=== PATIENT | female | born 1945 | race Caucasian/White ===

== ENCOUNTER 2020-05-22 07:26 | Observation (INO) ==
[2020-05-22] MEDS ORDERED: MAGNESIUM SULFATE 2 GM/50 ML BAG IV PRN ×2 (08:19→20:39)
[2020-05-22] MEDS ORDERED: ONDANSETRON 4 MG ODT TABLET SL PRN ×2 (08:19→20:39)
[2020-05-22] MEDS ORDERED: ACETAMINOPHEN 325 MG TABLET PO PRN ×2 (08:19→20:39)
[2020-05-22] MEDS ORDERED: POLYETHYLENE GLYCOL 3350 17 GM PACKET PO PRN ×2 (08:19→20:39)
[2020-05-22] MEDS ORDERED: ONDANSETRON 4 MG/2 ML VIAL IV PRN ×3 (08:19→20:39)
[2020-05-22] MEDS ORDERED: ACETAMINOPHEN 650 MG/65 ML BAG IV PRN ×2 (08:19→20:39)
[2020-05-22] MEDS ORDERED: BISACODYL 10 MG SUPP.RECT PR PRN ×2 (08:19→20:39)
[2020-05-22] MEDS ORDERED: MELATONIN 3 MG TABLET PO PRN ×2 (08:19→20:39)
[2020-05-22] MEDS ORDERED: HYDROmorphone 0.5 MG/0.5 ML SYRINGE IV PRN ×2 (08:19→20:39)
[2020-05-22] MEDS ORDERED: POTASSIUM CHLORIDE 40 MEQ in DEXTROSE 5% IN WATER 500 ML IV PRN ×2 (08:19→20:39)
[2020-05-22] MEDS ORDERED: METOPROLOL TARTRATE 5 MG/5 ML VIAL IV PRN ×2 (08:19→20:39)
[2020-05-22] MEDS ORDERED: hydrALAZINE 20 MG/ML VIAL IV PRN ×2 (08:19→20:39)
[2020-05-22] MEDS ORDERED: POTASSIUM CHLORIDE 20 MEQ PACKET PO PRN ×2 (08:19→20:39)
[2020-05-22] MEDS ORDERED: KETOROLAC 15 MG/ML VIAL IV PRN ×2 (08:29→20:39)
[2020-05-22] MEDS ORDERED: 0.9 % SODIUM CHLORIDE 1,000 ML IV SCH (08:30)
--- NOTE | 2020-05-22 08:58 | XRay Report ---
CLINICAL INFORMATION: Preop COMPARISON: None. TECHNIQUE: PA and Lateral views FINDINGS: The heart size, mediastinum and pulmonary vessels are unremarkable. The lungs are clear. There are no effusions. Severe right glenohumeral degeneration noted with 11 mm loose body overlying the subscapularis bursa.. IMPRESSION: No cardiopulmonary disease evident.. Interpreted and Authenticated by: Bob Wells 05/22/20
[2020-05-22] MEDS ORDERED: MULTIVIT,THER IRON,CA,FA & MIN 1 TABLET PO SCH (09:00)
[2020-05-22] MEDS ORDERED: DOCUSATE SODIUM 100 MG CAPSULE PO SCH (09:00)
[2020-05-22] MEDS ORDERED: cefTRIAXone 2 GM in DEXTROSE 5% IN WATER 50 ML IV SCH (09:00)
[2020-05-22] MEDS ORDERED: HEPARIN 5,000 UNIT/ML VIAL SQ SCH (09:00)
--- NOTE | 2020-05-22 10:41 | Internal Med History&Physical ---
HPI History of Present Illness Patient information: Note initiated : 05/22/20 at 10:40 am Service Date, if different from initiated Date: [] Patient: Ella Arrington a 74 y/o F admitted on 05/22/20 for Obstructive Stone & UTI. Chief Complaint: Left flank pain History of present illness: Ms. Arrington is a 74 year old F with a history of osteoporosis on Prolia/hypothyroidism presents to [place] ER with rapid onset left flank pain that started around midnight. Symptoms were graded 8 or 10-10 out of 10 associated nausea and diaphoresis. Initial work-up in the ER was consistent with obstructive uropathy 1 cm stone on abdominal imaging. Subsequently urology was consulted and recommended patient be transferred to [facility] for further evaluation/operative intervention. Hospitalist service was consulted for admission. Patient was accepted and arrived in stable state. At the time of my evaluation patient is in minimal discomfort rating pain 5 out of 10 with minimal nausea. She denies associated shaking chills, fever, hematuria. She denies any history of prior urinary stones or recurrent UTI. Review of systems 10 point review system was performed and is negative except for ones discussed above PFSH PFSH All Active Problems (Updated 05/22/20 @ 13:02 by Feliberto Hemphill MD) Ureteral stone (Acute) Benign positional vertigo (Acute) Acute seborrheic dermatitis (Acute) Eustachian tube dysfunction (Acute) Urinary tract infection (Acute) Overactive bladder (Acute) Uncontrolled hypertension (Acute) Hyperlipidemia (Chronic) Concussion (Chronic 12/27/14) Osteoporosis (Chronic) Degenerative disc disease, cervical (Chronic) Fatigue (Chronic) Vitamin B12 deficiency (Chronic) Hypertension (Chronic) Back muscle spasm (Chronic) Hyperplastic colonic polyp (Chronic) Stress (Chronic) Body mass index 34.0-34.9, adult (Chronic) Postmenopausal status (Chronic) Dysuria (Chronic) Hypothyroidism (Chronic) Medical History Back muscle spasm (Chronic) Body mass index 34.0-34.9, adult (Chronic) Concussion (Chronic 12/27/14) residual dizziness Degenerative disc disease, cervical (Chronic) Dysuria (Chronic) Fatigue (Chronic) Hyperlipidemia (Chronic) Hyperplastic colonic polyp (Chronic) Hypertension (Chronic) Hypothyroidism (Chronic) Osteoporosis (Chronic) Postmenopausal status (Chronic) Stress (Chronic) Vitamin B12 deficiency (Chronic) Surgical History History of (Acute) two History of carpal tunnel surgery (Acute) both History of cataract extraction (Chronic ~12/2014) History of cholecystectomy (Chronic) History of colonoscopy (Chronic 06/22/17) History of gastric bypass (Chronic) History of right knee joint replacement (Chronic ~09/2012) Family History Other Kidney stone No pertinent family history Stroke Social History marital status: smoking status: Never smoker alcohol intake frequency: does not drink MEDS/ALLERGIES Home Medications and Allergies Home Medications Medication Instructions Recorded Confirmed Type cyanocobalamin (vitamin B-12) 1,000 mcg IM QMONTH 05/31/19 05/22/20 History 1,000 mcg/mL injection solution denosumab 60 mg/mL subcutaneous 60 mg SUB-Q [id number] 05/31/19 05/22/20 History syringe sulfamethoxazole 800 1 tab PO BID 10 Days #20 tab 03/26/20 05/22/20 Rx mg-trimethoprim 160 mg tablet Allergies Allergy/AdvReac Type Severity Reaction Status Date / Time hydrocodone AdvReac Intermediate Hives, Verified 03/26/20 09:20 does not feel well EXAM Constitutional Vitals: Temp Pulse Resp BP Pulse Ox 98.3 F 98 H 18 164/81 94 05/22/20 08:00 05/22/20 08:00 05/22/20 08:00 05/22/20 08:00 05/22/20 08:00 Head normocephalic Oral cavity moist No ear nose discharge Eye movement symmetrical Neck supple no lymphadenopathy S1-S2 occasionally irregular Nonlabored breathing Nondistended nontender abdomen Lower extremity no cyanosis clubbing or joint swelling Skin no suspicious lesion Psych anxious but alert cooperative Neuro normal higher function DATA Data Completed and Pending Labs: Labs from last 24 hours 05/22/20 09:00 SARS-CoV-2 (PCR) Pending A/P Narrative A/P Narrative: * Left obstructive uropathy with pyonephrosis-urology consulted. Continue NPO. Will likely undergo surgical intervention later today. Await further recommendations from urology * Abdominal pain on as needed Toradol/opioids * Full code Plan * Observation admit * Urology consult * Pain management Time Spent With Patient Time: Total time spent is greater than 50% in coordination of care (as documented) at patient's floor/unit and/or counseling patient: QUALITY Stroke Symptom Onset Unknown: No VTE Deep Vein Thrombosis/Pulmonary Embolism Present on Admission: No
--- NOTE | 2020-05-22 13:03 | Internal Medicine Consult Note ---
HPI Data of Consult Consult date: 05/22/20 Primary Care Provider: SISSY Dumont Consult Narrative History of present illness: 74-year-old female with no history of previous renal stones who presents today with left lower quadrant discomfort that started at midnight. No fevers, no chills, no nausea, no vomiting just severe pain in her left lower quadrant that radiates to the groin. No previous pain. No hematuria, no dysuria. She does have issues with frequent UTIs and this is a newer problem this last 6 to 12 months. No previous urologic surgery or intervention. She reports her pain is currently 6 out of 10 but helped with pain medication. She is n.p.o. cc:: CC: Sylvester Morris Constitutional Constitutional: Absent chills, fever(s) and malaise EENT Eyes: Absent change in vision, itchy eyes and loss of vision Cardiovascular Cardiovascular: Absent chest pain, chest pain at rest and chest pain with activity Respiratory Respiratory: Absent cough, dyspnea on exertion and wheezing Gastrointestinal Gastrointestinal: Present abdominal pain; Absent nausea and vomiting Genitourinary Genitourinary: Present as per HPI Musculoskeletal Musculoskeletal: Absent muscle weakness, numbness and tingling Integumentary Integumentary: Absent new lesions, pruritus and jaundice Neurological Neurological: Absent numbness, tingling and weakness Psychiatric Psychiatric: Absent behavioral changes, confusion and difficulty concentrating Endocrine Endocrine: Absent polydipsia, polyphagia and polyuria Hematologic/Lymphatic Hematologic/Lymphatic: Absent easy bleeding, easy bruising and lymphadenopathy Allergic/Immunologic Allergic/Immunologic: Absent itchy eyes, uticaria and wheezing PFSH PFSH All Active Problems (Updated 05/22/20 @ 13:02 by Feliberto Hemphill MD) Ureteral stone (Acute) Benign positional vertigo (Acute) Acute seborrheic dermatitis (Acute) Eustachian tube dysfunction (Acute) Urinary tract infection (Acute) Overactive bladder (Acute) Uncontrolled hypertension (Acute) Hyperlipidemia (Chronic) Concussion (Chronic 12/27/14) Osteoporosis (Chronic) Degenerative disc disease, cervical (Chronic) Fatigue (Chronic) Vitamin B12 deficiency (Chronic) Hypertension (Chronic) Back muscle spasm (Chronic) Hyperplastic colonic polyp (Chronic) Stress (Chronic) Body mass index 34.0-34.9, adult (Chronic) Postmenopausal status (Chronic) Dysuria (Chronic) Hypothyroidism (Chronic) Medical History Back muscle spasm (Chronic) Body mass index 34.0-34.9, adult (Chronic) Concussion (Chronic 12/27/14) residual dizziness Degenerative disc disease, cervical (Chronic) Dysuria (Chronic) Fatigue (Chronic) Hyperlipidemia (Chronic) Hyperplastic colonic polyp (Chronic) Hypertension (Chronic) Hypothyroidism (Chronic) Osteoporosis (Chronic) Postmenopausal status (Chronic) Stress (Chronic) Vitamin B12 deficiency (Chronic) Surgical History History of (Acute) two History of carpal tunnel surgery (Acute) both History of cataract extraction (Chronic ~12/2014) History of cholecystectomy (Chronic) History of colonoscopy (Chronic 06/22/17) History of gastric bypass (Chronic) History of right knee joint replacement (Chronic ~09/2012) Family History Other Kidney stone No pertinent family history Stroke Social History marital status: smoking status: Never smoker alcohol intake frequency: does not drink MEDS/ALLERGIES Home Medications and Allergies Home Medications Medication Instructions Recorded Confirmed Type cyanocobalamin (vitamin B-12) 1,000 mcg IM QMONTH 05/31/19 05/22/20 History 1,000 mcg/mL injection solution denosumab 60 mg/mL subcutaneous 60 mg SUB-Q [id number] 05/31/19 05/22/20 History syringe sulfamethoxazole 800 1 tab PO BID 10 Days #20 tab 03/26/20 05/22/20 Rx mg-trimethoprim 160 mg tablet Allergies Allergy/AdvReac Type Severity Reaction Status Date / Time hydrocodone AdvReac Intermediate Hives, Verified 03/26/20 09:20 does not feel well EXAM Constitutional Vitals: Temp Pulse Resp BP Pulse Ox 98.4 F 68 18 137/61 93 05/22/20 12:00 05/22/20 12:00 05/22/20 12:00 05/22/20 12:00 05/22/20 12:00 General appearance: cooperative and no acute distress; no disheveled Head Head exam: Present atraumatic, normal inspection and normocephalic Eye Eye exam: Present EOMI and normal appearance; Absent scleral icterus Respiratory Respiratory exam: Absent accessory muscle use, respiratory distress, stridor and wheezes Cardiovascular Cardiovascular exam: Present RRR; Absent bradycardia and tachycardia GI/Abdominal GI/Abdominal exam: Present soft and tenderness (Left lower quadrant, no left CVA tenderness); Absent distended, guarding, mass, rebound and rigid Additional comments: Left lower quadrant tenderness, no CVA tenderness Neurological Exam Neurological exam: Present alert and oriented X3; Absent altered Psychiatric Psychiatric exam: Present normal affect; Absent agitated, anxious and flat affect DATA Data Completed and Pending Labs: Labs from last 24 hours 05/22/20 09:00 SARS-CoV-2 (PCR) Negative A/P Assessment and plan (1) Ureteral stone: Status: Acute Narrative A/P Narrative: Left ureteral stone -Only the report is available and mentions the left renal pelvis but "on the bladder side" UVJ stone 14 mm -We are waiting for the images to be sent over to see if this is a true UPJ or UVJ stone -We will plan for left ureteroscopy laser lithotripsy and stent placement. Did discuss with the patient, that given the size of her stone, if we are unable to gain access in a retrograde fashion she may need transfer to another facility for an urgent left nephrostomy tube placement by interventional radiology. The risk of this is small but not 0. -Procedure risks and benefits were gone over in depth and informed consent was obtained. All her questions were answered. -She is currently hemodynamically stable Time Spent With Patient Time: Total time spent is greater than 50% in coordination of care (as documented) at patient's floor/unit and/or counseling patient: Total time spent with greater than 50% in coordination of care (as documented) at patient's floor/unit and/or counseling patient:: 15 - 24 minutes
[2020-05-22] MEDS ORDERED: 0.9 % SODIUM CHLORIDE 10 ML SYRINGE IV SCH (14:00)
[2020-05-22] MEDS ORDERED: fentaNYL 100 MCG/2 ML VIAL IV ONE (19:26)
[2020-05-22] MEDS ORDERED: PROPOFOL 200 MG/20 ML VIAL IV ONE (19:26)
[2020-05-22] MEDS ORDERED: LIDOCAINE HCL/PF 100 MG/5 ML SYRINGE IV ONE (19:26)
[2020-05-22] MEDS ORDERED: KETAMINE 100 MG/ML ML ONE (19:26)
[2020-05-22] MEDS ORDERED: MIDAZOLAM 2 MG/2 ML VIAL ONE (19:26)
[2020-05-22] MEDS ORDERED: MEPERIDINE 25 MG/ML SYRINGE IV PRN (19:50)
[2020-05-22] MEDS ORDERED: fentaNYL 100 MCG/2 ML VIAL IV PRN (19:50)
[2020-05-22] MEDS ORDERED: ACETAMINOPHEN 1,000 MG/100 ML BAG IV ONE (19:50)
[2020-05-22] MEDS ORDERED: OPIUM/BELLADONNA ALKALOIDS 60 MG SUPP.RECT PR PRN (19:50)
[2020-05-22] MEDS ORDERED: IPRATROPIUM/ALBUTEROL 3 ML AMPUL.NEB NEB PRN (19:50)
[2020-05-22] MEDS ORDERED: OPIUM/BELLADONNA ALKALOIDS 60 MG SUPP.RECT PR ONE (19:59)
[2020-05-22] MEDS ORDERED: LACTATED RINGERS 1,000 ML IV SCH (20:00)
--- NOTE | 2020-05-22 20:10 | Brief Operative Note ---
Brief Operative Note Date of procedure: 05/22/20 Pre-op diagnosis: left ureteralvesical junction stone Post-op diagnosis: same (impacted and imfected UVJ stone) Procedure: left uretal stent placement Grafts/Implants: Yes (6 norwegian 24 cm ureteral stent) Anesthesia: GETA Findings: massively distorted left trigone from > 1 cm UVJ stone, copious purulent debris with manipulation ureteral orifice and persistent contrast from previous CT Complications: none Surgeon: Feliberto Hemphill Estimated blood loss (cc): 0 Specimens Removed/Pathology: other (urine culture ) Condition: stable Disposition: PACU
--- NOTE | 2020-05-22 20:19 | Discharge Plan ---
Discharge Plan Patient/Caregiver Discharge Instructions Activity: increase activity as tolerated Diet: Regular Diet Activity Restrictions/Additional Instructions: -your stone was VERY impacted and there was significant debris and infection built up behind such -we ONLY placed a ureteral stent. this will allow all the debris and infection to clear. then we will go remove the stone at a later date -call the urology office and they will set you up for the stone and stent removal in the operating room. we like to wait 1-2 weeks to give the infection time to clear. -the stent may make you feel like you need to urinate more frequently - pyridium 100 mg (turns the urine orange) can be taken to soothe the bladder up to three times a day as needed. if this prescription is expensive, there is an OVER THE COUNTER VERSION by the [employer] and ask the pharmacist to show you. -call the office for all questions. if any worsening of condition, come back to the emergency room Prescriptions: New phenazopyridine [Pyridium] 100 mg tablet 100 mg PO TID PRN (Reason: pain) Qty: 20 RF: 0 cephalexin [Keflex] 500 mg capsule 500 mg PO TID Qty: 20 RF: 0 Discontinued sulfamethoxazole-trimethoprim [Bactrim DS] 800-160 mg tablet 1 tab PO BID 10 Days Qty: 20 RF: 0 No Action cyanocobalamin (vitamin B-12) 1,000 mcg/mL solution 1,000 mcg IM QMONTH RF: 0 Prolia 60 mg/mL syringe 60 mg SUB-Q [id number] RF: 0 Follow Up Plan Patient Disposition: Home, Self-Care Discharge Orders: Discharge Order (Routine); Ordered 05/23/20 Ordered By: Feliberto Hemphill
[2020-05-22] MEDS ORDERED: SENNOSIDES/DOCUSATE SODIUM 1 TAB TABLET PO SCH ×2 (21:00)
[2020-05-22] MEDS: 0.9 % SODIUM CHLORIDE 1,000 ML IV SCH (21:17)
[2020-05-22] MEDS: 0.9 % SODIUM CHLORIDE 10 ML SYRINGE IV SCH (21:33)
[2020-05-22] MEDS: HEPARIN 5,000 UNIT/ML VIAL SQ SCH (21:39)
[2020-05-22] MEDS: DOCUSATE SODIUM 100 MG CAPSULE PO SCH (21:39)
[2020-05-22 22:17] LABS: Appearance,Urine CLOUDY (Clear); Bilirubin,Urine Negative (Negative); Color,Urine YELLOW; Culture Indicated,Urine yes; Glucose,Urine (UA) Negative (Negative); Ketones,Urine Negative (Negative); Leukocyte Esterase,Urine 500 /ug (Negative); Nitrate,Urine Negative (Negative); Protein,Urine 30 mg/dL (Negative); Specific Gravity,Urine 1.002 (1.000-1.035); Urine Blood >=1.0 mg/dL (Negative); Urine RBC 18 /hpf (0-1); Urine Squamous Epithelial Cell < 1 /hpf (0-4); Urine WBC > 182 /hpf (0-4); Urobilinogen,Urine Negative
--- NOTE | 2020-05-23 03:37 | XRay Report ---
CLINICAL INFORMATION: ureteroscopy with stent placement COMPARISON: None. FINDINGS: Single digital image from the OR following retrograde pyelogram and ureteroscopy shows a proximal end of the pigtail stent overlying the renal pelvis. Moderate left hydroureter/hydronephrosis. IMPRESSION: Placement of double pigtail left ureteral stent. Proximal and in the renal pelvis Interpreted and Authenticated by: Bob Wells 05/23/20
[2020-05-23] MEDS: oxyCODONE/APAP 5/325MG TABLET PO PRN ×2 (03:57→11:28)
[2020-05-23] MEDS: 0.9 % SODIUM CHLORIDE 10 ML SYRINGE IV SCH ×2 (05:27→14:18)
[2020-05-23 07:12] LABS: ALT/SGPT 18 U/L (<40); AST/SGOT 27 U/L (<32); Albumin 3.3 gm/dL (3.2-5.2); Albumin/Globulin Ratio 1.1 (1.0-2.3); Alkaline Phosphatase 55 U/L (39-117); Bilirubin,Direct < 0.2 mg/dL (<0.3); Bilirubin,Total 0.7 mg/dL (0.1-1.0); Blood Urea Nitrogen 13 mg/dL (8-23); Calcium 8.1 mg/dL (8.6-10.4); Carbon Dioxide 22 mmol/L (22-30); Chloride 102 mmol/L (96-108); Globulin 2.9 gm/dL (2.2-3.7); Glomerular Filtration Rate 73; Glucose 116 mg/dL (70-105); Lactate Dehydrogenase 209 U/L (135-225); Phosphorous 2.4 mg/dL (2.5-4.5); Triglycerides 48 mg/dL (<150); Uric Acid 4.5 mg/dL (2.5-8.0)
[2020-05-23 08:44] LABS: Eosinophils % (Manual) 1 % (0-7); Hematocrit 37.4 % (36.0-48.0); Hemoglobin 11.5 g/dL (12.0-15.0); Lymphocytes % 6 % (15-49); Mean Cell Volume 89.5 fL (80.0-100.0); Mean Corpuscular HGB Conc 30.7 g/dL (31.0-36.0); Mean Platelet Volume 9.6 fL (7.4-10.4); Monocytes % (Manual) 4 % (1-12); Platelet Count 215 K/mcL (140-440); Platelet Estimate NORMAL (Normal); RBC 4.18 M/mcL (4.00-5.20); RBC Morphology NORMAL (Normal); Red Cell Distribution Width 14.2 % (11.5-14.5); Segmented Neutrophils % 89 % (38-78); WBC 6.3 K/mcL (4.5-11.0)
[2020-05-23] MEDS: HEPARIN 5,000 UNIT/ML VIAL SQ SCH (08:47)
[2020-05-23] MEDS: DOCUSATE SODIUM 100 MG CAPSULE PO SCH (08:48)
[2020-05-23] MEDS ORDERED: cefTRIAXone 2 GM in DEXTROSE 5% IN WATER 50 ML IV SCH (09:00)
[2020-05-23] MEDS ORDERED: MULTIVIT,THER IRON,CA,FA & MIN 1 TABLET PO SCH (09:00)
[2020-05-23] MEDS ORDERED: PNEUMOCOCCAL 23-VAL P-SAC VAC 0.5 ML SYRINGE IM ONE (10:00)
[2020-05-23] MEDS ORDERED: PHENAZOPYRIDINE 200 MG TABLET PO ONE ×2 (12:09→16:54)
--- NOTE | 2020-05-23 12:14 | Internal Med Progress Note ---
SUBJECTIVE Subjective Patient information: Note initiated : 05/23/20 at 12:10 pm Service Date, if different from initiated Date: [] Patient: Ella Arrington 74 y/o F admitted on 05/22/20 for Obstructive Stone & UTI. Patient had a significantly impacted stone with gross signs infection and purulent drainage so only a stent was placed and no attempt to remove her stone was made. Plan is for time to allow the stent to dilate the ureter and allow the infection to clear and then formal ureteroscopy and laser lithotripsy and stent exchange. Patient is doing well today. she was up ambulating. her pain is improved UNLESS she voids, then it is 6/10. no fevers, no chills, tolerating diet but poor a ppetite. Chief Complaint: [] Constitutional Vitals: Vital Signs Temp Pulse Resp BP Pulse Ox 100 F H 76 20 120/61 94 05/23/20 08:00 05/23/20 08:00 05/23/20 08:00 05/23/20 08:00 05/23/20 08:00 Period Temp Pulse Resp BP Sys/Calix Pulse Ox Last 24 Hr 98.5 F-100 F 70-79 16-20 94-150/43-95 92-100 Intake and Output 05/22/20 05/23/20 05/23/20 21:59 05:59 13:59 Intake Total 150 420 410 Output Total 150 Balance 0 420 410 Weight 191 lb 8 oz Intake & Output: Intake & Output 05/22/20 05/23/20 05/23/20 21:59 05:59 13:59 Intake Total 150 420 410 Output Total 150 Balance 0 420 410 Weight 191 lb 8 oz Intake: IV 150 50 Rocephin 2 gm In Dextrose 5% in 50 50 Water 50 ml @ 100 mls/hr IV Q24H [facility] Rx#:[id number] Oral 420 360 Output: Void Amount 150 Other: Meal Dinner Breakfast Percent of Meal Consumed 75% 75% Feeding Ability Independent Independent Urine Color Bright Yellow # Voids 1 General appearance: cooperative and no acute distress Head Head exam: Present atraumatic, normal inspection and normocephalic Respiratory Respiratory exam: Absent respiratory distress, stridor and wheezes GI/Abdominal GI/Abdominal exam: Present soft; Absent distended, firm, guarding, mass, rebound and tenderness Neurological Exam Neurological exam: Present alert and oriented X3 Psychiatric Psychiatric exam: Present normal affect and normal mood; Absent agitated and anxious OBJ DATA Labs CBC & Chem 7: 05/23/20 05:50 05/23/20 05:50 Labs: Abnormal Lab Results 05/23/20 05/23/20 05/22/20 05:50 05:50 21:00 Hgb 11.5 L MCHC 30.7 L Seg Neutrophils % 89 H Lymphocytes % 6 L Glucose 116 H Calcium 8.1 L Phosphorus 2.4 L Urine Appearance Cloudy A Urine Protein 30 A Urine Occult Blood >=1.0 A Ur Leukocyte Esterase 500 A Urine RBC 18 H Urine WBC > 182 H Meds: Medications Acetaminophen (Tylenol) 650 mg PO Q4-6HP PRN; Protocol PRN Reason: Per Pain Protocol/Fever > 101 Bisacodyl (Dulcolax) 10 mg [place] Q2-3DAYS PRN PRN Reason: Constipation Docusate Sodium (Colace) 100 mg PO BID [facility] Last Admin: 05/23/20 08:48 Dose: Not Given Documented by: Heparin Sodium (Porcine) (Heparin) 5,000 unit SQ Q12 [facility] Last Admin: 05/23/20 08:47 Dose: 5,000 unit Documented by: Hydralazine HCl (Apresoline) 10 mg IV Q4-6HP PRN PRN Reason: Hypertension Hydromorphone HCl (Dilaudid) 0.25 - 0.5 mg IV Q4HP PRN; Protocol PRN Reason: Per Pain Protocol Ceftriaxone Sodium 2 gm/ (Dextrose) 50 mls @ 100 mls/hr IV Q24H [facility]; Protocol Last Infusion: 05/23/20 09:20 Dose: Infused Documented by: Potassium Chloride 40 meq/ (Dextrose) 520 mls @ 130 mls/hr IV UD PRN PRN Reason: K+ = or < 3.5 Sodium Chloride (Sodium Chloride 0.9%) 1,000 mls @ 50 mls/hr IV .Q20H [facility] Stop: 05/24/20 20:29 Last Admin: 05/22/20 21:17 Dose: 50 mls/hr Documented by: Acetaminophen (Ofirmev) 650 mg in 65 mls @ 130 mls/hr IV Q6HP PRN; Protocol PRN Reason: Per Pain Protocol/Fever > 101 Magnesium Sulfate (Magnesium Sulfate) 2 gm in 50 mls @ 50 mls/hr IV UD PRN PRN Reason: MG = or < 1.7 Iron Carb/Multivit/[place]/Folic Acid (Multivitamin W/Minerals) 1 tab PO DAILY [facility] Last Admin: 05/23/20 08:47 Dose: 1 tab Documented by: Ketorolac Tromethamine (Toradol) 15 mg IV Q6HP PRN PRN Reason: Per Pain Protocol Stop: 05/24/20 08:30 Melatonin (Melatonin 3mg Tablet) 3 mg PO HSP PRN PRN Reason: Insomnia Metoprolol Tartrate (Lopressor) 5 mg IV Q5M PRN PRN Reason: Heart Rate > 140 bpm Ondansetron HCl (Zofran Odt) 4 mg SL Q4-6HP PRN; Protocol PRN Reason: Nausea And Vomiting Ondansetron HCl (Zofran) 4 mg IV Q4-6HP PRN; Protocol PRN Reason: Nausea And Vomiting Oxycodone/Acetaminophen (Percocet 5-325 Mg) 1 tab PO Q4-6HP PRN; Protocol PRN Reason: Per Pain Protocol Last Admin: 05/23/20 11:28 Dose: 1 tab Documented by: Phenazopyridine HCl (Pyridium) 200 mg PO ONCE ONE Stop: 05/23/20 12:10 Polyethylene Glycol (Miralax) 17 gm PO DAILYP PRN PRN Reason: Constipation Potassium Chloride (Klor-Con) 40 meq PO DAILYP PRN PRN Reason: K+ < 3.5 Senna/Docusate Sodium (Senna Plus Tablet) 1 tab PO HS [facility] Last Admin: 05/22/20 21:39 Dose: 1 tab Documented by: Sodium Chloride (Saline Flush) 10 ml IV Q8 [facility] Last Admin: 05/23/20 05:27 Dose: Not Given Documented by: A/P Narrative A/P Narrative: 1) left > 1 cm impacted and infected UVJ stone -will add pyridium 200 mg and see if her pain with voiding improves -if improved then home on antibiotics and pyridium and plan for surgery next week -if she has persistent intractable stent pain, then she will remain inpatient and will move up surgery to thursday afternoon Time Spent With Patient Time: Total time spent is greater than 50% in coordination of care (as documented) at patient's floor/unit and/or counseling patient: QUALITY Stroke Symptom Onset Unknown: No VTE Deep Vein Thrombosis/Pulmonary Embolism Present on Admission: No
--- NOTE | 2020-05-23 13:42 | Internal Med Progress Note ---
SUBJECTIVE Subjective Patient information: Note initiated : 05/23/20 at 1:39 pm Service Date, if different from initiated Date: [] Patient: Ella Arrington a 74 y/o F admitted on 05/22/20 for Obstructive Stone & UTI. Chief Complaint: [] History of present illness: Ms. Arrington is a 74 year old F with a history of osteoporosis on Prolia/hypothyroidism presents to [place] ER with rapid onset left flank pain that started around midnight. Symptoms were graded 8 or 10-10 out of 10 associated nausea and diaphoresis. Initial work-up in the ER was consistent with obstructive uropathy 1 cm stone on abdominal imaging. Subsequently urology was consulted and recommended patient be transferred to [facility] for further evaluation/operative intervention. Subsequently hospitalist service was consulted. Patient was accepted and arrived in stable state. At the time of my evaluation patient is in minimal discomfort rating pain 5 out of 10 with minimal nausea. She denies associated shaking chills, fever, hematuria. She denies any history of prior urinary stones or recurrent UTI. 05/23-patient post stenting day 1. No overnight fever chills. White count 6.3 however persistent left flank pain around 6/10. On Pyridium/antibiotics. Ongoing management per urology. No additional concerns Constitutional Vitals: Vital Signs Temp Pulse Resp BP Pulse Ox 99.0 F 71 20 123/59 95 05/23/20 12:00 05/23/20 12:00 05/23/20 12:00 05/23/20 12:00 05/23/20 12:00 Period Temp Pulse Resp BP Sys/Calix Pulse Ox Last 24 Hr 98.5 F-100 F 70-79 16-20 94-150/43-95 92-100 Intake and Output 05/22/20 05/23/20 05/23/20 21:59 05:59 13:59 Intake Total 150 420 410 Output Total 150 Balance 0 420 410 Weight 86.863 kg alert oriented no anxiety Nonlabored breathing Nondistended abdomen Intake & Output: Intake & Output 05/22/20 05/23/20 05/23/20 21:59 05:59 13:59 Intake Total 150 420 410 Output Total 150 Balance 0 420 410 Weight 86.863 kg Intake: IV 150 50 Rocephin 2 gm In Dextrose 5% in 50 50 Water 50 ml @ 100 mls/hr IV Q24H [facility] Rx#:[id number] Oral 420 360 Output: Void Amount 150 Other: Meal Dinner Breakfast Percent of Meal Consumed 75% 75% Feeding Ability Independent Independent Urine Color Bright Yellow # Voids 1 OBJ DATA Labs CBC & Chem 7: 05/23/20 05:50 05/23/20 05:50 Labs: Abnormal Lab Results 05/23/20 05/23/20 05/22/20 05:50 05:50 21:00 Hgb 11.5 L MCHC 30.7 L Seg Neutrophils % 89 H Lymphocytes % 6 L Glucose 116 H Calcium 8.1 L Phosphorus 2.4 L Urine Appearance Cloudy A Urine Protein 30 A Urine Occult Blood >=1.0 A Ur Leukocyte Esterase 500 A Urine RBC 18 H Urine WBC > 182 H Meds: Medications Acetaminophen (Tylenol) 650 mg PO Q4-6HP PRN; Protocol PRN Reason: Per Pain Protocol/Fever > 101 Bisacodyl (Dulcolax) 10 mg KS Q2-3DAYS PRN PRN Reason: Constipation Docusate Sodium (Colace) 100 mg PO BID [facility] Last Admin: 05/23/20 08:48 Dose: Not Given Documented by: Heparin Sodium (Porcine) (Heparin) 5,000 unit SQ Q12 [facility] Last Admin: 05/23/20 08:47 Dose: 5,000 unit Documented by: Hydralazine HCl (Apresoline) 10 mg IV Q4-6HP PRN PRN Reason: Hypertension Hydromorphone HCl (Dilaudid) 0.25 - 0.5 mg IV Q4HP PRN; Protocol PRN Reason: Per Pain Protocol Ceftriaxone Sodium 2 gm/ (Dextrose) 50 mls @ 100 mls/hr IV Q24H [facility]; Protocol Last Infusion: 05/23/20 09:20 Dose: Infused Documented by: Potassium Chloride 40 meq/ (Dextrose) 520 mls @ 130 mls/hr IV UD PRN PRN Reason: K+ = or < 3.5 Sodium Chloride (Sodium Chloride 0.9%) 1,000 mls @ 50 mls/hr IV .Q20H [facility] Stop: 05/24/20 20:29 Last Admin: 05/22/20 21:17 Dose: 50 mls/hr Documented by: Acetaminophen (Ofirmev) 650 mg in 65 mls @ 130 mls/hr IV Q6HP PRN; Protocol PRN Reason: Per Pain Protocol/Fever > 101 Magnesium Sulfate (Magnesium Sulfate) 2 gm in 50 mls @ 50 mls/hr IV UD PRN PRN Reason: MG = or < 1.7 Iron Carb/Multivit/Jenkins/Folic Acid (Multivitamin W/Minerals) 1 tab PO DAILY [facility] Last Admin: 05/23/20 08:47 Dose: 1 tab Documented by: Ketorolac Tromethamine (Toradol) 15 mg IV Q6HP PRN PRN Reason: Per Pain Protocol Stop: 05/24/20 08:30 Melatonin (Melatonin 3mg Tablet) 3 mg PO HSP PRN PRN Reason: Insomnia Metoprolol Tartrate (Lopressor) 5 mg IV Q5M PRN PRN Reason: Heart Rate > 140 bpm Ondansetron HCl (Zofran Odt) 4 mg SL Q4-6HP PRN; Protocol PRN Reason: Nausea And Vomiting Ondansetron HCl (Zofran) 4 mg IV Q4-6HP PRN; Protocol PRN Reason: Nausea And Vomiting Oxycodone/Acetaminophen (Percocet 5-325 Mg) 1 tab PO Q4-6HP PRN; Protocol PRN Reason: Per Pain Protocol Last Admin: 05/23/20 11:28 Dose: 1 tab Documented by: Polyethylene Glycol (Miralax) 17 gm PO DAILYP PRN PRN Reason: Constipation Potassium Chloride (Klor-Con) 40 meq PO DAILYP PRN PRN Reason: K+ < 3.5 Senna/Docusate Sodium (Senna Plus Tablet) 1 tab PO HS [facility] Last Admin: 05/22/20 21:39 Dose: 1 tab Documented by: Sodium Chloride (Saline Flush) 10 ml IV Q8 [facility] Last Admin: 05/23/20 05:27 Dose: Not Given Documented by: A/P Narrative A/P Narrative: * Left obstructive uropathy with pyelonephrosis - Post stenting day 1. Managed per urology. On antibiotic coverage. * Abdominal pain on as needed Toradol/opioids * Full code Plan * Continue management per urology * No further recommendations from hospitalist service Time Spent With Patient Time: Total time spent is greater than 50% in coordination of care (as documented) at patient's floor/unit and/or counseling patient: QUALITY Stroke Symptom Onset Unknown: No VTE Deep Vein Thrombosis/Pulmonary Embolism Present on Admission: No
[2020-05-23] MEDS: 0.9 % SODIUM CHLORIDE 1,000 ML IV SCH (17:25)
--- NOTE | 2020-05-23 18:24 | Discharge Summary ---
Discharge Provider Provider Patient information: Note initiated : 05/23/20 at 6:22 pm Service Date, if different from initiated Date: [] Patient: Ella Arrington a 74 y/o F admitted on 05/22/20 for Obstructive Stone & UTI. Chief Complaint: [] Discharge diagnosis Left obstructive uropathy with pyelonephrosis - Post stenting day 1. Managed per urology. On antibiotic coverage. Abdominal pain on as needed Toradol/opioids Brief hospital course History of present illness: Ms. Arrington is a 74 year old F with a history of osteoporosis on Prolia/hypothyroidism presents to [place] ER with rapid onset left flank pain that started around midnight. Symptoms were graded 8 or 10-10 out of 10 associated nausea and diaphoresis. Initial work-up in the ER was consistent with obstructive uropathy 1 cm stone on abdominal imaging. Subsequently urology was consulted and recommended patient be transferred to [facility] for further evaluation/operative intervention. Subsequently hospitalist service was consulted. Patient was accepted and arrived in stable state. At the time of my evaluation patient is in minimal discomfort rating pain 5 out of 10 with minimal nausea. She denies associated shaking chills, fever, hematuria. She denies any history of prior urinary stones or recurrent UTI. 05/23-patient post stenting day 1. No overnight fever chills. White count 6.3 however persistent left flank pain around 6/10. On Pyridium/antibiotics. Ongoing management per urology. No additional concerns Patient feeling a lot better. Urology recommends discharging patient home on antibiotics and follow-up as outpatient surgery next week. Date of admission: 05/22/20 07:26 Discharge date: 05/23/20 Primary care physician: SISSY Dumont Consults: 05/22/20 08:21 Consult to Physician [CONS] Routine Comment: Consulting Provider: Feliberto Hemphill Reason For Exam: Physician to Consult Discharge Meds Discharge Medications Home Medications cyanocobalamin (vitamin B-12) 1,000 mcg/mL injection solution 1,000 mcg IM QMONTH 05/31/19 [History Confirmed 05/22/20 Last Taken Unknown] denosumab 60 mg/mL subcutaneous syringe 60 mg SUB-Q [id number] 05/31/19 [History Confirmed 05/22/20 Last Taken 06/28/19] cephalexin [Keflex] 500 mg PO TID #20 cap 05/23/20 [Rx Last Taken Unknown] phenazopyridine [Pyridium] 100 mg PO TID PRN #20 tab 05/23/20 [Rx Last Taken U nknown] COURSE Hospital Course Hospital course: . Discharge diagnosis: . Time Spent with Patient Time attestation: Total time spent providing and/or coordinating discharge services: EXAM Constitutional Vitals: Temp Pulse Resp BP Pulse Ox 98.6 F 77 20 137/67 93 05/23/20 17:00 05/23/20 17:00 05/23/20 17:00 05/23/20 17:00 05/23/20 17:00 Discharge Data Data Completed and Pending Labs on day of discharge: Labs from last 24 hours 05/23/20 05/23/20 05/22/20 05:50 05:50 21:00 WBC 6.3 RBC 4.18 Hgb 11.5 L Hct 37.4 MCV 89.5 MCH 27.5 MCHC 30.7 L RDW 14.2 Plt Count 215 MPV 9.6 Seg Neutrophils % 89 H Band Neutrophils % Pending Lymphocytes % 6 L Monocytes % (Manual) 4 Eosinophils % (Manual) 1 Platelet Estimate Normal RBC Morphology Normal Sodium 135 Potassium 3.7 Chloride 102 Carbon Dioxide 22 Anion Gap 11.0 BUN 13 Creatinine 0.8 GFR Calculation 73 Glucose 116 H Uric Acid 4.5 Calcium 8.1 L Phosphorus 2.4 L Magnesium 2.1 Total Bilirubin 0.7 Direct Bilirubin < 0.2 GGT 6 AST 27 ALT 18 Alkaline Phosphatase 55 Lactate Dehydrogenase 209 Total Protein 6.2 Albumin 3.3 Globulin 2.9 Albumin/Globulin Ratio 1.1 Triglycerides 48 Urine Color Yellow Urine Appearance Cloudy A Urine pH 6.0 Ur Specific [place] 1.002 Urine Protein 30 A Urine Glucose (UA) Negative Urine Ketones Negative Urine Occult Blood >=1.0 A Urine Nitrate Negative Urine Bilirubin Negative Urine Urobilinogen Negative Ur Leukocyte Esterase 500 A Urine RBC 18 H Urine WBC > 182 H Ur Squamous Epith Cells < 1 Urine Bacteria None Ur Culture Indicated? yes Discharge Plan Patient/Caregiver Discharge Instructions Activity: increase activity as tolerated Diet: Regular Diet Instructions: Cephalexin (By mouth), Phenazopyridine (By mouth), Cystoscopy (DC), Urethral Stent Placement (DC) Activity Restrictions/Additional Instructions: Your stone was VERY impacted and there was significant debris and infection built up behind such. We ONLY placed a ureteral stent. This will allow all the debris and infection to clear. Then we will go remove the stone at a later date. Call the urology office [phone] and they will set you up for the stone and stent removal in the operating room. We like to wait 1-2 weeks to give the infection time to clear. The stent may make you feel like you need to urinate more frequently. Pyridium 100 mg (turns the urine orange) can be taken to soothe the bladder up to three times a day as needed. A prescription has been sent to your pharmacy. If this prescription is too expensive, there is an OVER THE COUNTER VERSION by the brand AZO and ask the pharmacist to show you. Call the office for all questions. If any worsening of condition, come back to the emergency room. This discharge packet is provided to you to help keep you informed about your care. We want to ensure you get everything you need when you go home. You will also be receiving a call from us in a few days to follow up with you and see how you are doing since your discharge. This gives us a chance to listen to any concerns you maybe experiencing since you were discharged or any additional needs you may have, as well as providing us feedback on your care experience. We strive to always provide excellent care and thank you for your feedback and for choosing [facility]. Prescriptions: New phenazopyridine [Pyridium] 100 mg tablet 100 mg PO TID PRN (Reason: pain) Qty: 20 RF: 0 cephalexin [Keflex] 500 mg capsule 500 mg PO TID Qty: 20 RF: 0 Discontinued sulfamethoxazole-trimethoprim [Bactrim DS] 800-160 mg tablet 1 tab PO BID 10 Days Qty: 20 RF: 0 No Action cyanocobalamin (vitamin B-12) 1,000 mcg/mL solution 1,000 mcg IM QMONTH RF: 0 Prolia 60 mg/mL syringe 60 mg SUB-Q [id number] RF: 0 Follow Up Plan Follow up with: Feliberto Hemphill MD [Physician] - (Call the urology office tomorrow and they will set you up for the stone and stent removal in the operating room in 1-2 weeks. ) Patient Disposition: Home, Self-Care Rehab Potential: Fair I certify that the patient requires SNF services: No Overall status at discharge: patient is progressing back to baseline Discharge Orders: Discharge Order (Routine); Ordered 05/23/20 Ordered By: Feliberto GASTON VTE Deep Vein Thrombosis/Pulmonary Embolism Present on Admission: No
--- NOTE | 2020-07-25 20:37 | Operative Note ---
Operative Note Operative Note: reentry note, original note lost Date of procedure: 05/22/20 Pre-op diagnosis: left ureterovesical junction stone Post-op diagnosis: same (impacted and impacted UVJ stone) Procedure: left uretal stent placement Grafts/Implants: Yes (6 su[place]ese 24 cm ureteral stent) Anesthesia: GETA Findings: massively distorted left trigone from > 1 cm UVJ stone, copious purulent debris with manipulation ureteral orifice and persistent contrast from previous CT Complications: none Surgeon: Feliberto Hemphill Estimated blood loss (cc): 0 Specimens Removed/Pathology: other (urine culture ) Condition: stable Disposition: PACU Informed consent was obtained and preoperative antibiotics were given. Patient was taken to the operative suite placed on the table in supine position. Adequate anesthesia was initiated. Patient was then placed in the dorsolithotomy position and prepped and draped in the usual sterile fashion. We began the procedure with a 21 Malian cystoscope which was guided into the urethra and bladder. The left ureteral orifice was investigated and we attempted to place a stiff body guidewire which was challenging to pass through the impacted left ureterovesical junction stone. A regular Glidewire with out stiffness was required to navigate around the stone and we were able to transverse up to the left renal pelvis a 6 [place] 24 cm double-J ureteral stent was then placed with difficulty around the impacted stone. The stent was seen to coil adequately in the renal pelvis under fluoroscopy and in the bladder under direct vision. There was an immediate brisk hydronephrotic drip of purulent debris down the ureter signifying obstruction and infection. The bladder was drained. Patient tolerated the procedure well went to recovery room in excellent condition.
== END 2020-05-23 19:02 | disposition home or self-care (01) ==
LOC: MEDSUR 07:26 → INTOOBSV 07:26
PROVIDERS: ADMIT Internal Medicine; ATTEND Internal Medicine